=== PATIENT | female | born 1965 | race Caucasian/White ===

== ENCOUNTER 2016-03-27 07:02 | Day surgery (SDC) | payer OTHER ==
[~2016-03-27 07:02] MED LIST: CITA20TA4 PO; FISH1000 PO; HYDR25TA5 PO; M2 M100C PO; METF500T PO; METO25TA3 PO; POTA1TAB4 PO; RANI150T PO; TRAD5TAB PO; TURMPOW PO
[2016-03-27] MEDS ORDERED: LORazepam 1 MG TAB SL SCH (07:45)
[2016-03-27] MEDS ORDERED: CHLORHEXIDINE GLUCONATE 2 % 1 PACK (2 CLOTHS) TOP SCH (07:45)
[2016-03-27] MEDS ORDERED: NS 1000 ML IV SCH (07:45)
[2016-03-27] MEDS ORDERED: ceFAZolin 2 GM PREMIX 50 ML IV SCH (07:45)
[2016-03-27] MEDS ORDERED: Hold AM Insulin & AM Hypoglycemic medications in diabetic patients XX PRN (07:45)
[2016-03-27] MEDS ORDERED: MUPIROCIN 2% OINT 1 APPLIC/GM SYR NASAL SCH (07:45)
[2016-03-27] MEDS ORDERED: POVIDONE IODINE 5% (ANTISEPSIS KIT) 4 APPLICATIONS EACH NARE SCH (07:45)
[2016-03-27] MEDS ORDERED: MIDAZOLAM HCL 5 MG/5 ML VIAL ONE (08:06)
[2016-03-27] MEDS ORDERED: CEPH-460 PO (10:51)
--- NOTE | 2016-03-27 12:29 | MP ---
cc: MARY NAJERA M.D. DATE OF SURGERY: 03/27/2016 OPERATION: Loop recorder insertion. INDICATION Mrs. Canales is a 51-year-old female with episode of supraventricular tachyarrhythmia, symptomatic, negative electrophysiology study, near-syncope, to undergo loop recorder insertion. The risks, the nature and the benefit of the procedure are clearly stated to her. The risks include pneumothorax, cardiac perforation, stroke, need for open heart surgery and even . The patient understood and agreed to proceed. PROCEDURE After written informed consent was obtained, the patient was evaluated at the DOC Unit. The patient was prepped in the usual sterile fashion. Conscious sedation was initiated and maintained using intravenous Versed and intravenous Fentanyl. Once sedation verified, the left parasternal area was anesthetized with 2% Xylocaine. Using a cutter a 11-cm incision was made. Subsequently the loop was injected under the skin. After adequate sensing, threshold was obtain, the border was reapproximated using Dermabond and Steri-Strips. No incident report. The patient tolerated the procedure. Blood loss was Minimal. IMPLANTED HARDWARE: The implanted loop recorder is a [employer] model number LNQ11, serial number [id number]. SENSING: The sensitivity is 0.35. SETTING: Tachy is set at above 150. Renato below 40. CONCLUSION Successful loop recorder insertion, COMMENT AND RECOMMENDATION The patient is going to be observed. When stable will be discharged home later today. MD LEESA Torres/TLL /8:59 AM /12:14 PM
== END 2016-03-27 10:55 | disposition home or self-care (01) ==
LOC: HDIC 07:02 → HDOC 07:02
PROVIDERS: ATTEND Internal Medicine Interventional Cardiology
DX: I47.1 Supraventricular tachycardia (principal); R55 Syncope and collapse
CPT/HCPCS: 33282; C1764; J0690; J2250; J3010

== ENCOUNTER 2016-08-21 21:55 | Emergency (ER) | payer OTHER ==
[~2016-08-21] VITALS: Ht 170.2 cm; Wt 85.3 kg
[~2016-08-21 21:55] MED LIST changes: -CLIN1CAP6 PO; -LEVA500T20 PO; -LEXA10TA PO; -ONABOTULINUMTOXINA INJ 100 UNITS/VIAL ONE; -PLEXUS BIOCLEANSE PO; -PLEXUS PROBIOTIC PO; -PROM25TA10 PO; -PROPOFOL 500 MG/50 ML BTL IV ONE; -ROSU1TAB10 PO; -SODIUM CHLORIDE 0.9% INJ 10 ML ONE; -SOTA80TA PO; -SPIR25TA PO
[2016-08-21 21:57] VITALS: BP 122/75; PULSE 103; RESP 20; TEMP 99.2; O2SAT 94
[2016-08-21] MEDS ORDERED: RANI150T PO (22:15)
[2016-08-21] MEDS ORDERED: LEXA10TA PO (22:15)
[2016-08-21] MEDS ORDERED: PLEXUS BIOCLEANSE PO (22:15)
[2016-08-21] MEDS ORDERED: SPIR25TA PO (22:15)
[2016-08-21] MEDS ORDERED: ROSU1TAB10 PO (22:15)
[2016-08-21] MEDS ORDERED: SOTA80TA PO (22:15)
[2016-08-21] MEDS ORDERED: PLEXUS PROBIOTIC PO (22:15)
[2016-08-21] MEDS ORDERED: PROM25TA10 PO (22:16)
--- NOTE | 2016-08-21 22:19 | PD ---
HPI Chief Complaint: Cold / Flu Symptoms Time Seen by Provider: 22:14 Travel History International Travel<30 days: No Contact w/Intl Traveler<30days: No Traveled to known affect area: No History of Present Illness HPI The patient is a 51-year-old female that had an EGD completed today at approximately [address] Zamora. The patient has been running a fever as high as 102.7 and has had a cough that began after the EGD. She does have a hoarse voice. Botox was used during the procedure. She has never smoked and does not have any history of lung problems. The patient states she is not allergic to Cipro, she was told not to take that with her previous anxiety medications which he does not take at this time. PFSH Past Medical History Hx Anticoagulant Therapy: Yes Cancer: Yes (MELANOMA, CERVICAL) Cardiovascular Problems: Yes (AFIB) Chest Pain: No Diabetes: Yes Gastrointestinal Disorders: No Glaucoma: No Hepatitis: No Hiatal Hernia: Yes Hypertension: Yes Integumentary: No Thyroid Disease: No ?: Not Past Surgical History Gynecologic Surgery: Yes (CONE BIOPSY AND D&C HYSTEROSCOPY 96') Hysterectomy: Yes Social History Alcohol Use: No (VERY RARELY) Tobacco Use: No Allergies-Medications (Allergen,Severity, Reaction): Coded Allergies: Cipro (Verified Allergy, Severe, 08/21/16) Meperidine (Verified Allergy, Severe, 08/21/16) Demerol (Verified Allergy, Intermediate, NAUSEA AND VOMITING, 08/21/16) Reported Meds & Prescriptions Reported Meds & Active Scripts Active Reported Phenergan (Promethazine HCl) 25 Mg Tablet 25 Mg PO Q6H PRN Ranitidine (Ranitidine HCl) 150 Mg Tab 150 Mg PO BID PRN [Plexus Biocleanse] 1 Tab PO DAILY [Plexus Probiotic] 1 Tab PO DAILY Rosuvastatin (Rosuvastatin Calcium) 40 Mg Tab 40 Mg PO DAILY Spironolactone 25 Mg Tab 25 Mg PO DAILY Lexapro (Escitalopram Oxalate) 10 Mg Tab 10 Mg PO DAILY Sotalol (Sotalol HCl) 80 Mg Tab 80 Mg PO BID Tradjenta (Linagliptin) 5 Mg Tab 5 Mg PO DAILY Ranitidine (Ranitidine HCl) 150 Mg Tab 150 Mg PO HS Metformin (Metformin HCl) 500 Mg Tab 500 Mg PO BIDPC With meals Review of Systems Except as stated in HPI: all other systems reviewed are Neg Physical Exam Narrative GENERAL: The patient is alert, oriented 3 in no respiratory distress. Her vital signs show heart rate of 103 but otherwise are normal. SKIN: Focused skin assessment warm/dry. HEAD: Atraumatic. Normocephalic. EYES: Pupils equal and round. No scleral icterus. No injection or drainage. ENT: No nasal bleeding or discharge. Mucous membranes pink and moist. The throat shows the expected bruising and minimal swelling of the soft palate and uvula post EGD. She does have poor speech. NECK: Trachea midline. No JVD. CARDIOVASCULAR: Regular rate and rhythm. No murmur appreciated. RESPIRATORY: No accessory muscle use. Clear to auscultation. Breath sounds equal bilaterally. The patient does not take deep respirations because, when she does, it makes her cough. GASTROINTESTINAL: Abdomen soft, non-tender, nondistended. Hepatic and splenic margins not palpable. MUSCULOSKELETAL: No obvious deformities. No clubbing. No cyanosis. No edema. NEUROLOGICAL: Awake and alert. No obvious cranial nerve deficits. Motor grossly within normal limits. Normal speech. PSYCHIATRIC: Appropriate mood and affect; insight and judgment normal. Data Data Last Documented VS Vital Signs Date Time Temp Pulse Resp B/P Pulse Ox O2 Delivery O2 Flow Rate FiO2 08/21/16 22:40 96 16 118/74 94 Room Air 08/21/16 21:57 99.2 Orders Chest, Pa & Lat (08/21/16 22:14) Complete Blood Count With Diff (08/21/16 22:14) Comprehensive Metabolic Panel (08/21/16 22:14) Blood Culture (08/21/16 22:14) Arterial Blood Gas (Abg) (08/21/16 ) Urinalysis - C+S If Indicated (08/21/16 23:44) Ceftriaxone Inj (Rocephin Inj) (08/21/16 23:45) Clindamycin (Cleocin) (08/21/16 23:45) Labs Laboratory Tests Test 08/21/16 08/21/16 22:22 22:31 White Blood Count 16.2 TH/MM3 Red Blood Count 4.95 MIL/MM3 Hemoglobin 13.8 GM/DL Hematocrit 41.0 % Mean Corpuscular Volume 82.8 FL Mean Corpuscular Hemoglobin 27.9 PG Mean Corpuscular Hemoglobin 33.7 % Concent Red Cell Distribution Width 12.5 % Platelet Count 247 TH/MM3 Mean Platelet Volume 9.0 FL Neutrophils (%) (Auto) 90.5 % Lymphocytes (%) (Auto) 4.9 % Monocytes (%) (Auto) 4.1 % Eosinophils (%) (Auto) 0.2 % Basophils (%) (Auto) 0.3 % Neutrophils # (Auto) 14.7 TH/MM3 Lymphocytes # (Auto) 0.8 TH/MM3 Monocytes # (Auto) 0.7 TH/MM3 Eosinophils # (Auto) 0.0 TH/MM3 Basophils # (Auto) 0.0 TH/MM3 CBC Comment DIFF FINAL Differential Comment Sodium Level 138 MEQ/L Potassium Level 3.7 MEQ/L Chloride Level 100 MEQ/L Carbon Dioxide Level 26.0 MEQ/L Anion Gap 12 MEQ/L Blood Urea Nitrogen 13 MG/DL Creatinine 1.20 MG/DL Estimat Glomerular Filtration 47 ML/MIN Rate Random Glucose 289 MG/DL Calcium Level 9.0 MG/DL Total Bilirubin 0.4 MG/DL Aspartate Amino Transf 25 U/L (AST/SGOT) Alanine Aminotransferase 30 U/L (ALT/SGPT) Alkaline Phosphatase 113 U/L Total Protein 7.7 GM/DL Albumin 3.5 GM/DL Blood Gas Puncture Site RT RADIAL Blood Gas Patient Temperature 98.6 Blood Gas HCO3 25 mmol/L Blood Gas Base Excess 1.7 mmol/L Blood Gas Oxygen Saturation 93 % Arterial Blood pH 7.47 Arterial Blood Partial 36 mmHG Pressure CO2 Arterial Blood Partial 74 mmHG Pressure O2 Arterial Blood Oxygen Content 18.8 Vol % Arterial Blood 1.6 % Carboxyhemoglobin Arterial Blood Methemoglobin 1.0 % Blood Gas Hemoglobin 14.4 G/DL Oxygen Delivery Device ROOM AIR Blood Gas Inspired Oxygen 21 % [facility] Medical Decision Making Medical Screen Exam Complete: Yes Emergency Medical Condition: Yes Medical Record Reviewed: Yes Interpretation(s) The blood gases show pH 7.47, CO2 36, PO2 74 with O2 sat 93% on room air. The CBC shows a white count of 16,200 with 91% neutrophils but is otherwise unremarkable. The complete metabolic profile shows a creatinine 1.2, glucose of 289 but is otherwise normal. The chest x-ray shows under inflated exam with atelectasis in the right base and some degree of atelectasis on the left base. Some of the airspace opacity at the left base could also represent airspace consolidation and potentially an infectious process. Differential Diagnosis Aspiration pneumonia, community-acquired pneumonia, viral syndrome, hypoxemia, pneumothoraxunlikely, electrolyte disorder Narrative Course The patient's blood gases are tingling a normal but they are not as good as one would expect for someone who is never smoked. For this reason she was offered admission but declined. Plan: The patient will be given coverage with clindamycin and Levaquin because of the possibility of aspiration pneumonia. The patient states she is not allergic to Cipro. Diagnosis Primary Impression: Aspiration pneumonia Additional Instructions: As we discussed, follow-up with Dr. Joyce later this week. The clindamycin is 1 capsule 4 times daily and the Levaquin is one tablet daily, both are for 10 days. If worse, return to the emergency department anytime. Med/Other Pt SpecificInfo: Prescription(s) given Scripts Levofloxacin (Levaquin)500 Mg [id number] Mg PO DAILY 10 Days Prov:Bill Coles MD 08/21/16 Clindamycin 300 Mg Ssf182 Mg PO Q6H 10 Days Ref 0 Prov:Bill Coles MD 08/21/16 Disposition: 01 DISCHARGE HOME Condition: Stable Bill Coles MD Aug 21, 2016 22:19
[2016-08-21 22:40] VITALS: BP 118/74; PULSE 96; RESP 16; O2SAT 94
[2016-08-21 22:40] LABS: BLOOD GAS BASE EXCESS 1.7 mmol/L (-2-2); BLOOD GAS CARBOXYHEMOGLOBIN 1.6 % (0-4); BLOOD GAS HCO3 25 mmol/L (22-26); BLOOD GAS O2 HGB SATURATION 93 % (90-100); BLOOD GAS OXYGEN CONTENT 18.8 Vol % (12.0-20.0); BLOOD GAS PCO2 36 mmHG (38-42); BLOOD GAS PO2 74 mmHG (61-120); BLOOD GAS TOTAL HGB 14.4 G/DL (12.0-16.0); CRITICAL VALUE NO; DRAW SITE RT RADIAL; FIO2 21 %; NUMBER OF ARTERIAL PUNCTURES 1; OXYGEN DEVICE ROOM AIR; STAT YES; TEMP CORR TO 98.6; ULNAR PULSE PRESENT
--- NOTE | 2016-08-21 22:46 | RADHPO ---
EXAM DATE/TIME: 08/21/2016 22:27 [place] COMPARISON: No previous studies available for comparison. INDICATIONS : Fever and cough. MEDICAL HISTORY : Afib. SURGICAL HISTORY : Loop recorder insertion. ENCOUNTER: Initial ACUITY: 1 day PAIN SCORE: 0/10 LOCATION: Bilateral chest FINDINGS: Frontal and lateral views of the chest demonstrate a normal-sized cardiac silhouette. The loop record er type device is in the anterior chest. Lungs are underinflated and there is bibasilar opacity. No p neumothorax or pleural effusion is identified. The bones and soft tissues demonstrate no abnormality. . CONCLUSION: Underinflated examination with atelectasis at the right base and some degree of atelectasis in the le ft lung base. However, some of the airspace opacity at the left base could also represent airspace co nsolidation and potentially an infectious process. Fei Florentino MD on August 21, 2016 at 22:42 Board Certified Radiologist. This report was verified electronically.
[2016-08-21 22:50] LABS: AUTOMATED NEUTROPHIL # 14.7 TH/MM3 (1.8-7.7); BASOPHIL % 0.3 % (0.0-2.0); EOSINOPHIL % 0.2 % (0.0-4.0); LYMPH % 4.9 % (9.0-44.0); LYMPHOCYTE # 0.8 TH/MM3 (1.0-4.8); MEAN CELL VOLUME 82.8 FL (80.0-100.0); MEAN CORPUSCULAR HEMOGLOBIN 27.9 PG (27.0-34.0); MEAN CORPUSCULAR HGB CONC 33.7 % (32.0-36.0); MONO % 4.1 % (0.0-8.0); NEUT % 90.5 % (16.0-70.0); PLATELET COUNT 247 TH/MM3 (150-450); RED BLOOD COUNT 4.95 MIL/MM3 (4.00-5.30); RED CELL DISTRIBUTION WIDTH 12.5 % (11.6-17.2); WHITE BLOOD COUNT 16.2 TH/MM3 (4.0-11.0)
[2016-08-21 22:52] LABS: HEMO FLAGS DIFF FINAL
[2016-08-21 22:59] LABS: CHLORIDE 100 MEQ/L (98-107); POTASSIUM 3.7 MEQ/L (3.5-5.1); SODIUM (NA) 138 MEQ/L (136-145)
[2016-08-21 23:03] LABS: ANION GAP 12 MEQ/L (5-15); BLOOD UREA NITROGEN 13 MG/DL (7-18)
[2016-08-21 23:06] LABS: ALT (GPT) 30 U/L (10-53); AST (GOT) 25 U/L (15-37); GLOMERULAR FILTRATION RATE 47 ML/MIN (>89)
[2016-08-21 23:08] LABS: TOTAL BILIRUBIN ADULT 0.4 MG/DL (0.2-1.0)
[2016-08-21 23:09] LABS: ALKALINE PHOSPHATASE 113 U/L (45-117)
[2016-08-21 23:10] VITALS: BP 110/62; PULSE 92; RESP 16; O2SAT 93
[2016-08-21] MEDS ORDERED: cefTRIAXone INJ 1,000 MG in SODIUM CHLORIDE 0.9% INJ 100 ML IV ONE (23:45)
[2016-08-21] MEDS ORDERED: CLINDAMYCIN 150 MG CAP PO ONE (23:45)
[2016-08-21] MEDS ORDERED: CLIN1CAP6 PO (23:53)
[2016-08-21] MEDS ORDERED: LEVA500T20 PO (23:53)
[2016-08-22 00:11] LABS: BLOOD, URINE NEG (NEG); GLUCOSE,URINE 250 mg/dL (NEG); KETONE, URINE NEG (NEG); NITRITE,URINE NEG (NEG)
[2016-08-22 00:19] LABS: URINE COLOR YELLOW (YELLW/STRAW)
[2016-08-22 00:20] LABS: BACTERIA, URINE OCC /hpf; MUCUS URINE MOD /lpf (OCC)
[2016-08-22 00:21] LABS: SQUAMOUS EPITHELIAL CELL URINE > 8 /hpf (0-5); WBC, URINE 0-2 /hpf (0-5)
[2016-08-22 00:22] LABS: COMMENT (UR) CULT NOT INDICATED; CULTURE IF INDICATED CULT NOT INDICATED; RBC, URINE 0-3 /hpf (0-3)
[2016-08-22 00:55] VITALS: BP 103/68; PULSE 85; RESP 16; O2SAT 94
== END 2016-08-22 01:01 | disposition home or self-care (01) ==
LOC: PHED 21:55
DX: J69.0 Pneumonitis due to inhalation of food and vomit (principal); I48.91 Unspecified atrial fibrillation; E11.9 Type 2 diabetes mellitus without complications; I10 Essential (primary) hypertension; Z79.01 Long term (current) use of anticoagulants
CPT/HCPCS: 36600; 71020; 80053; 81001; 82805; 85025; 87040; 96365; 99284; J0696

== ENCOUNTER → 2016-08-21 | Day surgery (SDC) | payer OTHER ==
[~2016-08-21] MED LIST changes: +CEPH-460 PO; +CLIN1CAP6 PO; +LEVA500T20 PO; +LEXA10TA PO; +ONABOTULINUMTOXINA INJ 100 UNITS/VIAL ONE; +PLEXUS BIOCLEANSE PO; +PLEXUS PROBIOTIC PO; +PROM25TA10 PO; +PROPOFOL 500 MG/50 ML BTL IV ONE; +ROSU1TAB10 PO; +SODIUM CHLORIDE 0.9% INJ 10 ML ONE; +SOTA80TA PO; +SPIR25TA PO; -TURMPOW PO
--- NOTE | 2016-08-21 14:19 | GIPROC ---
[facility] [address] [facility], [address] COLONOSCOPY PROCEDURE REPORT EXAM DATE: 08/21/2016 PATIENT NAME: Elicia Canales MR #: [id number] BIRTHDATE: 1965 ENDOSCOPIST: Stefanie Zamora MD ORDER #: [id number] [employer] TECHNICIAN: STATUS: outpatient INDICATIONS: The patient is a 51 yr old female here for a colonoscopy due to average risk patient for colon cancer PROCEDURE PERFORMED: Colonoscopy with biopsy MEDICATIONS: None and Per Anesthesia. PREP QUALITY: fair PREP TYPE:Other: ESTIMATED BLOOD LOSS: None CONSENT: The patient understands the risks and benefits of the procedure and understands that these risks include, but are not limited to: sedation, allergic reaction, infection, perforation and/or bleeding. Alternative means of evaluation and treatment include, among others: physical exam, x-rays, and/or surgical intervention. The patient elects to proceed with this endoscopic procedure. medical equipment was checked for proper function. Hand hygiene and appropriate measures for infection prevention was taken. After the risks, benefits and alternatives of the procedure were thoroughly explained, Informed consent was verified, confirmed and timeout was successfully executed by the treatment team. A digital exam revealed external hemorrhoids The EC-[id number] ([id number]) endoscope was introduced through the anus and advanced to the cecum, which was identified by both the appendix and ileocecal valve. The instrument was then slowly withdrawn as the colon was fully examined. COLON FINDINGS: Polyp diminutive rectum-cold biopsy with complete removal. Retroflexed views revealed internal hemorrhoids and Retroflexed views revealed small internal hemorrhoids The scope was then completely withdrawn from the patient and the procedure terminated. PROCEDURE WITHDRAWAL TIME:6minutes ADVERSE EVENTS: There were no complications. IMPRESSIONS: 1. Polyp diminutive rectum-cold biopsy with complete removal 2. Retroflexed views revealed internal hemorrhoids 3. Retroflexed views revealed small internal hemorrhoids 4. Revealed external hemorrhoids RECOMMENDATIONS: 1. Await biopsy results. Biopsy results will not be ready for 7-10 days. If you don't hear from us in two weeks, call our office for results. 2. Probiotics from any C or health food store 3. Yearly rectal exams RECALL: Colonoscopy, pending biopsy results Stefanie Zamora MD eSigned: Stefanie Zamora MD 08/21/2016 2:18 PM cc: [facility] and Dolly Bell M.D. PATIENT NAME: Elicia Caanles MR#: [id number]
--- NOTE | 2016-08-21 14:24 | GIPROC ---
[facility] [address], [address] EGD PROCEDURE REPORT EXAM DATE: 08/21/2016 PATIENT NAME: Elicia Canales MR #: [id number] BIRTHDATE: 1965 ATTENDING: Stefanie Zamora MD ORDER #: [id number] PSYCHOLOGY ASSOCIATE: STATUS: outpatient INDICATIONS: The patient is a 51 yr old female here for an EGD due to reflux, gastroparesis PROCEDURE PERFORMED: EGD w/ biopsy EGD w/ directed submucosal injection(s), any substance MEDICATIONS: None and Per Anesthesia. TOPICAL ANESTHETIC: none CONSENT: The patient understands the risks and benefits of the procedure and understands that these risks include, but are not limited to: sedation, allergic reaction, infection, perforation and/or bleeding. Alternative means of evaluation and treatment include, among others: physical exam, x-rays, and/or surgical intervention. The patient elects to proceed with this endoscopic procedure. medical equipment was checked for proper function. Hand hygiene and appropriate measures for infection prevention was taken. After the risks, benefits and alternatives of the procedure were thoroughly explained, Informed consent was verified, confirmed and timeout was successfully executed by the treatment team. The patient was anesthetized with topical anesthesia and the EC-3490Li ([id number]) endoscope was introduced through the mouth and advanced to the second portion of the duodenum. Retroflexed views revealed a hiatal hernia The gastroscope was then slowly withdrawn and removed. Duodenitis second portion with supperficial ulcerations-biopsy gastritis antrum-biopsy esophagitis distal esophagus-biopsy 100 units of BOTOX injected in pyloric channela -25 units in each quadrant erythema vocal cords. ADVERSE EVENTS: There were no complications. IMPRESSIONS: 1. Duodenitis second portion with supperficial ulcerations-biopsy gastritis antrum-biopsy esophagitis distal esophagus-biopsy 100 units of BOTOX injected in pyloric channela -25 units in each quadrant 2. Retroflexed views revealed a hiatal hernia RECOMMENDATIONS: 1. Await biopsy results. Biopsy results will not be ready for 7-10 days. If you don't hear from us in two weeks, call our office for biopsy results. 2. Anti-reflux regimen 3. Continue PPI 4. Avoid NSAIDS 5. Ent eval-erythema vocal cords PATIENT CONDITION: stable DISPOSITION: Home REPEAT EXAM: EGD pending biopsy results Stefanie Zamora MD eSigned: Stefanie Zamora MD 08/21/2016 2:24 PM cc: Gianna López [facility] Katherine Bell M.D. PATIENT NAME: Parker Elicia Marques MR#: [id number]
== END | disposition home or self-care (01) ==
LOC: ESDC 12:04
PROVIDERS: ATTEND Internal Medicine Gastroenterology
DX: Z12.11 Encounter for screening for malignant neoplasm of colon (principal); K62.1 Rectal polyp; K64.8 Other hemorrhoids; K64.4 Residual hemorrhoidal skin tags; K21.9 Gastro-esophageal reflux disease without esophagitis; K31.84 Gastroparesis; K44.9 Diaphragmatic hernia without obstruction or gangrene; K20.9 Esophagitis, unspecified; K29.70 Gastritis, unspecified, without bleeding; K29.80 Duodenitis without bleeding
CPT/HCPCS: 00740; 00810; 43236; 43239; 45380; 88305; 88312; J0585; J3010

== ENCOUNTER → 2017-08-24 | Outpatient (CLI) | payer OTHER ==
[~2017-08-24] MED LIST changes: -CEPH-460 PO; -CITA20TA4 PO; +CLIN300C5 PO; +DOXY1TAB6 PO; -FISH1000 PO; -HYDR25TA5 PO; +INSPIREASE DRUG1 EA; +LEVA500T33 PO; +LEXA10TA PO; -M2 M100C PO; -METO25TA3 PO; +PLEXUS BIOCLEANSE PO; +PLEXUS PROBIOTIC PO; -POTA1TAB4 PO; +PRED20 PO; +PROM25TA10 PO; +ROSU1TAB10 PO; +SOTA80TA PO; +SPIR25TA PO
== END ==
LOC: HRSP 08:10
PROVIDERS: ATTEND Internal Medicine Pulmonary Disease
DX: R05 Cough (principal)
CPT/HCPCS: 36600; 82805; 94060; 94618; 94726; 94729

== ENCOUNTER 2017-08-26 19:48 | Emergency (ER) | payer OTHER ==
[~2017-08-26] VITALS: Ht 170.2 cm; Wt 87.3 kg
[~2017-08-26 19:48] MED LIST changes: -DOXY1TAB6 PO; -INSPIREASE DRUG1 EA; -PRED20 PO
[2017-08-26 19:50] VITALS: BP 162/85; PULSE 85; RESP 18; TEMP 98.2; O2SAT 96
[2017-08-26] MEDS ORDERED: PRED20 PO (20:34)
[2017-08-26] MEDS ORDERED: DOXY1TAB6 PO (20:34)
[2017-08-26] MEDS ORDERED: INSPIREASE DRUG1 EA (20:34)
--- NOTE | 2017-08-26 20:34 | PD ---
HPI Chief Complaint: Cold / Flu Symptoms Time Seen by Provider: 20:05 Travel History International Travel<30 days: No Contact w/Intl Traveler<30days: No Traveled to known affect area: No History of Present Illness HPI This is a 52-year-old female who presents to the emergency department with a history of aspiration pneumonia 1 year ago in the setting of endoscopy with subsequent episodes of bronchitis and pneumonia who presents to the emergency department with 1 month of nasal congestion and productive cough with green sputum, constant, moderate severity, worse in the evenings. She has been on Augmentin for several days but she is not improving. She follows with Dr. Lerma and just had pulmonary function test performed but does not know the results. She follows back up with him on . 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 She has a history of diabetes so she avoids prednisone if possible and she also has a history of atrial fibrillation and is on sotalol so she minimizes her use of albuterol. PFSH Past Medical History Hx Anticoagulant Therapy: Yes (asa) Arthritis: Yes (LOWER BACK) Anxiety: Yes Heart Rhythm Problems: Yes (HX SVT PVC'S AND PAC'S) Cancer: Yes (MELANOMA, CERVICAL) Cardiovascular Problems: Yes (afib) High Cholesterol: Yes Chest Pain: No Diabetes: Yes Diminished Hearing: No Gastrointestinal Disorders: No Glaucoma: No Hepatitis: No Hiatal Hernia: Yes Hypertension: Yes (PT DENIES) Integumentary: No Immunizations Current: Yes Sleep Apnea: Yes Thyroid Disease: No ?: Not : 1 Para: 1 Past Surgical History Abdominal Surgery: Yes (EGD, EGD WITH COLONOSCOPY) Gynecologic Surgery: Yes (CONE BIOPSY AND D&C HYSTEROSCOPY 96') Hysterectomy: Yes Thoracic Surgery: Yes (RIGHT BREAST PRE-CANCEROUS MASS REMOVED) Other Surgery: Yes (97' ) Social History Alcohol Use: No (VERY RARELY) Tobacco Use: No Substance Use: No Allergies-Medications (Allergen,Severity, Reaction): Coded Allergies: ciprofloxacin (Unverified Allergy, Severe, 08/26/17) meperidine (Unverified Allergy, Severe, 08/26/17) Reported Meds & Prescriptions Reported Meds & Active Scripts Active Levaquin (Levofloxacin) 500 Mg Tablet 500 Mg PO DAILY 10 Days Clindamycin (Clindamycin HCl) 300 Mg Cap 300 Mg PO Q6H 10 Days Reported Phenergan (Promethazine HCl) 25 Mg Tablet 25 Mg PO Q6H PRN Ranitidine (Ranitidine HCl) 150 Mg Tab 150 Mg PO BID PRN [Plexus Biocleanse] 1 Tab PO DAILY [Plexus Probiotic] 1 Tab PO DAILY Rosuvastatin (Rosuvastatin Calcium) 40 Mg Tab 40 Mg PO DAILY Spironolactone 25 Mg Tab 25 Mg PO DAILY Lexapro (Escitalopram Oxalate) 10 Mg Tab 10 Mg PO DAILY Sotalol (Sotalol HCl) 80 Mg Tab 80 Mg PO BID Tradjenta (Linagliptin) 5 Mg Tab 5 Mg PO DAILY Ranitidine (Ranitidine HCl) 150 Mg Tab 150 Mg PO HS Metformin (Metformin HCl) 500 Mg Tab 500 Mg PO BIDPC With meals Review of Systems Except as stated in HPI: all other systems reviewed are Neg Physical Exam Narrative GENERAL:Well appearing, no acute distress SKIN: Focused skin assessment warm and dry. HEAD: Atraumatic. Normocephalic. EYES: Pupils equal and round. No injection or drainage. ENT: Moist mucous membranes NECK: Trachea midline. CARDIOVASCULAR: Regular rate and rhythm. No murmur appreciated. RESPIRATORY: Diffuse expiratory wheezing with no focal crackles or rales, no increased work of breathing GASTROINTESTINAL: Abdomen soft, non-tender, nondistended. MUSCULOSKELETAL: No obvious deformities. NEUROLOGICAL: Awake and alert. No obvious cranial nerve deficits. Moving all extremities. PSYCHIATRIC: Appropriate mood and affect; insight and judgment normal. Data Data Last Documented VS Vital Signs Date Time Temp Pulse Resp B/P (MAP) Pulse Ox O2 Delivery O2 Flow Rate FiO2 08/26/17 19:50 98.2 85 18 162/85 (110) 96 MDM Medical Decision Making Medical Screen Exam Complete: Yes Emergency Medical Condition: Yes Interpretation(s) Afebrile, no tachycardia, hypertensive Differential Diagnosis Bronchitis, pneumonia, sinusitis Narrative Course This is a 52-year-old female who presents to the emergency department with productive cough with green sputum and nasal congestion. Her symptoms have been going on for 1 month. She has a benign physical exam with some expiratory wheezing. I think she would benefit from a low-dose of prednisone and albuterol. She will be switched to doxycycline to get better respiratory atypical coverage. I think she is safe to follow-up with Dr. Lerma as an outpatient. Diagnosis Primary Impression: Bronchitis Patient Instructions: General Instructions Additional Instructions: If you develop severe shortness of breath, chest pain, or difficulty breathing return to the emergency department. Use albuterol every 4 hours for the next 2 days. Then use as needed for wheezing. Complete your course of steroids. Complete your course of antibiotics. Follow up with your primary care physician in 2-3 days if your symptoms have not improved. Med/Other Pt SpecificInfo: Prescription(s) given Scripts Spacer/Device For Mdi (Inspirease Drug Delivery) 1 Ea Mis EA .XX DIRECTED, #1 0 Refills Prov: Jacklyn Mancini MD 08/26/17 Prednisone (Prednisone) 20 Mg Tab 40 MG PO DIRECTED for 5 Days, TAB 0 Refills Prov: Jacklyn Mancini MD 08/26/[address] (Doxycycline Hyclate DR) 100 Mg Tab 100 MG PO BID for Infection for 7 Days, #14 TAB 0 Refills Prov: Jacklyn Mancini MD 08/26/17 Disposition: 01 DISCHARGE HOME Condition: Stable Jacklyn Mancini MD Aug 26, 2017 20:34
== END 2017-08-26 20:46 | disposition home or self-care (01) ==
LOC: PHED 19:48
DX: J40 Bronchitis, not specified as acute or chronic (principal); E78.00 Pure hypercholesterolemia, unspecified; E11.9 Type 2 diabetes mellitus without complications; I48.91 Unspecified atrial fibrillation; I47.1 Supraventricular tachycardia; Z79.84 Long term (current) use of oral hypoglycemic drugs
CPT/HCPCS: 99283

== ENCOUNTER 2018-03-08 16:20 | Observation (INO) ==
--- NOTE | 2018-03-08 17:14 | XR ---
EXAM DATE: 03/08/2018 5:11 PM EST AGE/SEX: 52 years / Female INDICATIONS: Chest pain. CLINICAL DATA: This is the patient's initial encounter. Patient reports that signs and symptoms have been present for 1 day and indicates a pain score of 8/10. MEDICAL/SURGICAL HISTORY: . AFIB. . Loop recorder COMPARISON: No prior exams available for comparison. FINDINGS: A single AP view of the chest demonstrates the lungs to be symmetrically aerated without evidence of mass, infiltrate or effusion. The cardiomediastinal contours are unremarkable. Osseous structures a re intact. CONCLUSION: No acute intrathoracic disease. Electronically signed by: Rachid Bains MD Board Certified Radiologist 03/08/2018 5:12 PM EST
--- NOTE | 2018-03-08 17:20 | ED ---
HPI General Chief Complaint: Chest Pain Stated Complaint: Chest pain Time Seen by Provider: 03/08/18 16:44 Source: patient Mode of arrival: ambulatory Limitations: no limitations History of Present Illness HPI narrative: 52-year-old female with PMH of DM, KAYLIN, SVT, A. fib, status post implanted loop recorder presents the ED for evaluation of a few days history of "not feeling well." She states that today she felt "like my heart dropped and I had palpitations." She endorses accompanying substernal chest pain, maximally 6/10, currently asymptomatic. She also endorses associated dizziness. She denies associated diaphoresis, nausea, vomiting, shortness of breath. She denies fever, chills abdominal pain, dysuria, hematuria, back pain. She states that she is compliant 3 out of 7 days with her CPAP at night. She endorses compliance with 81 mg aspirin daily. 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 She states that she is followed by Dr. Carey. No treatment attempted before arrival. Related Data Home Medications Medication Instructions Recorded Confirmed citalopram 20 mg PO DAILY 03/08/18 03/08/18 dapagliflozin-saxagliptin [Qtern] 1 tab PO QAM 03/08/18 03/08/18 furosemide 40 mg PO DAILY 03/08/18 03/08/18 pioglitazone 15 mg PO DAILY 03/08/18 03/08/18 potassium chloride 20 meq PO DAILY 03/08/18 03/08/18 pravastatin 20 mg PO DAILY 03/08/18 03/08/18 sotalol 80 mg PO Q12H 03/08/18 03/08/18 Allergies Allergy/AdvReac Type Severity Reaction Status Date / Time ciprofloxacin Allergy Severe Unverified 08/26/17 19:50 meperidine Allergy Severe Unverified 08/26/17 19:50 Review of Systems ROS: all other systems reviewed are negative [facility] Medical History Medical History Atrial fibrillation (Acute) Breast mass in female (Acute) Cervical cancer (Acute) delivery delivered (Acute) Diabetes (Acute) H/O: hysterectomy (Acute) Melanoma (Acute) Obstructive sleep apnea (Acute) Surgical History Surgical History History of appendectomy (Acute) History of loop recorder (Acute) Social History Social History Substance History: No History of Abuse Second Hand Smoke Exposure: No Smoking Status: Never smoker How Often Do You Have a Drink Containing Alcohol: Never Recent Travel in [facility] within the Last 8 Weeks: No Recent Out of Country Travel within the Last 8 Weeks: No Exam Narrative Exam Narrative: GENERAL: Well-nourished, well-developed, nontoxic-appearing white female in no acute distress. SKIN: Focused skin assessment warm/dry. HEAD: Atraumatic. Normocephalic. EYES: Pupils equal and round. No scleral icterus. No injection or drainage. ENT: No nasal bleeding or discharge. Mucous membranes pink and moist. NECK: Trachea midline. No JVD. CARDIOVASCULAR: Regular rate and rhythm. No murmur appreciated. RESPIRATORY: No accessory muscle use. Clear to auscultation. Breath sounds equal bilaterally. GASTROINTESTINAL: Abdomen soft, non-tender, nondistended. Hepatic and splenic margins not palpable. MUSCULOSKELETAL: No obvious deformities. No clubbing. No cyanosis. No edema. NEUROLOGICAL: Awake and alert. No obvious cranial nerve deficits. Motor grossly within normal limits. Normal speech. PSYCHIATRIC: Appropriate mood and affect; insight and judgment normal. Course Initial Documented Vital Signs Temperature 97.4 F L 03/08/18 16:38 Pulse Rate 71 03/08/18 16:38 Respiratory Rate 16 03/08/18 16:38 Blood Pressure 144/73 H 03/08/18 16:38 Pulse Oximetry 98 03/08/18 16:38 Last Documented Vital Signs Temperature 97.4 F L 03/08/18 16:38 Pulse Rate 75 03/08/18 21:15 Respiratory Rate 18 03/08/18 21:15 Blood Pressure 131/63 03/08/18 21:15 Pulse Oximetry 98 03/08/18 21:15 Medical Decision Making [facility] Narrative Medical decision making narrative: 52-year-old female with PMH of DM, KAYLIN, SVT, A. fib, status post implanted loop recorder presents the ED for evaluation of palpitation and substernal chest pain. Currently asymptomatic. She states that she is compliant 3 out of 7 days with her CPAP at night. She endorses compliance with 81 mg aspirin daily. 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 She states that she is followed by Dr. Carey locally. She has not had a stress test in "about 5 years." She endorses history of heart problems and several first-degree relatives. Vitals reviewed. Physical exam is reassuring. EKG without acute findings. CXR with no acute cardiopulmonary disease. Troponin negative x1. CBC and CMP without concerning abnormalities. The patient's loop recorder was interrogated, no recent events noted. I discussed the findings with the patient. I offered her observation admission for chest pain center. She is agreeable to this plan. Please see chest pain center notes for disposition. Medical Screen Exam Complete: Yes Emergency Medical Condition: Yes Differential Diagnosis Differential Diagnosis: Dysrhythmia versus metabolic derangement versus UTI versus other Lab Data Result diagrams: 03/08/18 18:00 03/08/18 18:00 Lab Results 03/08/18 03/08/18 03/08/18 Range/Units 18:00 18:00 19:00 WBC 9.4 (4.0-11.0) th/mm3 RBC 5.19 (4.00-5.30) mil/mm3 Hgb 14.5 (11.6-15.3) gm/dL Hct 44.1 (35.0-46.0) % MCV 85.0 (80.0-100.0) fL MCH 28.0 (27.0-34.0) pg MCHC 32.9 (32.0-36.0) % RDW 14.4 (11.6-17.2) % Plt Count 303 (150-450) th/mm3 MPV 9.4 (7.0-11.0) fL Prelim Diff (Auto) Jack Winder Neut % (Auto) 66.1 (16.0-70.0) % Lymph % (Auto) 25.4 (9.0-44.0) % Winn % (Auto) 6.0 (0.0-8.0) % Eos % (Auto) 1.9 (0.0-4.0) % Baso % (Auto) 0.6 (0.0-2.0) % Neut # (Auto) 6.2 (1.8-7.7) th/mm3 Lymph # (Auto) 2.4 (1.0-4.8) th/mm3 Winn # (Auto) 0.6 (0.0-0.9) th/mm3 Eos # (Auto) 0.2 (0.0-0.4) th/mm3 Baso # (Auto) 0.1 (0.0-0.2) th/mm3 WBC Differential . Differential Comment Auto diff final Sodium 137 (136-145) meq/L Potassium 4.0 (3.5-5.1) meq/L Chloride 102 (98-107) meq/L Carbon Dioxide 29.2 (21.0-32.0) meq/L Anion Gap 6 (5-15) meq/L BUN 27 H (7-18) mg/dL Creatinine 0.97 (0.50-1.00) mg/dL Estimated GFR 60 L (>89) mL/min Random Glucose 174 H (74-106) mg/dL Calcium 8.9 (8.5-10.1) mg/dL Total Bilirubin 0.4 (0.2-1.0) mg/dL AST 33 (15-37) U/L ALT 26 (10-53) U/L Alkaline Phosphatase 136 H (45-117) U/L Total Creatine Kinase (26-192) U/L Troponin I Less than 0.02 L (0.02-0.05) ng/mL Total Protein 8.0 (6.4-8.2) g/dL Albumin 3.4 (3.4-5.0) g/dL Urine Color Yellow (Yellw/Straw) Urine Clarity Clear (Clear) Urine pH 5.0 (5.0-8.5) Ur Specific Swoope 1.031 (1.002-1.035) Urine Protein Negative (Neg-Trace) mg/dL Urine Glucose (UA) 500 or greater (Negative) mg/dL Urine Ketones Negative (Negative) mg/dL Urine Occult Blood Negative (Negative) Urine Nitrate Negative (Negative) Urine Bilirubin Negative (Negative) Urine Urobilinogen Less than 2 (Less than 2) mg/dL Ur Leukocyte Esterase Negative (Negative) Ur Squamous Epith Cells <1 (0-5) /hpf Micro UA Comment Culture not ind Ur Microscopic Review Not Reportable Urine Culture Comments Culture not ind 03/08/18 Range/Units 20:35 WBC (4.0-11.0) th/mm3 RBC (4.00-5.30) mil/mm3 Hgb (11.6-15.3) gm/dL Hct (35.0-46.0) % MCV (80.0-100.0) fL MCH (27.0-34.0) pg MCHC (32.0-36.0) % RDW (11.6-17.2) % Plt Count (150-450) th/mm3 MPV (7.0-11.0) fL Prelim Diff (Auto) Neut % (Auto) (16.0-70.0) % Lymph % (Auto) (9.0-44.0) % Winn % (Auto) (0.0-8.0) % Eos % (Auto) (0.0-4.0) % Baso % (Auto) (0.0-2.0) % Neut # (Auto) (1.8-7.7) th/mm3 Lymph # (Auto) (1.0-4.8) th/mm3 Winn # (Auto) (0.0-0.9) th/mm3 Eos # (Auto) (0.0-0.4) th/mm3 Baso # (Auto) (0.0-0.2) th/mm3 WBC Differential Differential Comment Sodium (136-145) meq/L Potassium (3.5-5.1) meq/L Chloride (98-107) meq/L Carbon Dioxide (21.0-32.0) meq/L Anion Gap (5-15) meq/L BUN (7-18) mg/dL Creatinine (0.50-1.00) mg/dL Estimated GFR (>89) mL/min Random Glucose (74-106) mg/dL Calcium (8.5-10.1) mg/dL Total Bilirubin (0.2-1.0) mg/dL AST (15-37) U/L ALT (10-53) U/L Alkaline Phosphatase (45-117) U/L Total Creatine Kinase 73 (26-192) U/L Troponin I Less than 0.02 L (0.02-0.05) ng/mL Total Protein (6.4-8.2) g/dL Albumin (3.4-5.0) g/dL Urine Color (Yellw/Straw) Urine Clarity (Clear) Urine pH (5.0-8.5) Ur Specific Swoope (1.002-1.035) Urine Protein (Neg-Trace) mg/dL Urine Glucose (UA) (Negative) mg/dL Urine Ketones (Negative) mg/dL Urine Occult Blood (Negative) Urine Nitrate (Negative) Urine Bilirubin (Negative) Urine Urobilinogen (Less than 2) mg/dL Ur Leukocyte Esterase (Negative) Ur Squamous Epith Cells (0-5) /hpf Micro UA Comment Ur Microscopic Review Urine Culture Comments Imaging Data Radiologist's impression: Chest X-Ray 03/08/18 16:48 CONCLUSION: No acute intrathoracic disease. Head CT 03/08/18 17:17 CONCLUSION: 1. No acute intracranial abnormalities. . Discharge Plan Discharge Disposition Patient Disposition: ED Admit(ED Internal Use Only) Discharge Order Discharge Orders: ED Use Only Admit Order (Routine); Ordered 03/08/18 Ordered By: Renetta Melgar Discharge Details Diagnosis: Atypical chest pain Physicians Team ED Provider: Ruperto Foster ED Midlevel Provider: Renetta Melgar Primary Care Provider: Dolly Bell Attending Provider: Aldo Thapa Status ED Status: Admitted Observation Patient
[2018-03-08 18:22] LABS: Baso # (Auto) 0.1 th/mm3 (0.0-0.2); Baso % (Auto) 0.6 % (0.0-2.0); Eos # (Auto) 0.2 th/mm3 (0.0-0.4); Eos % (Auto) 1.9 % (0.0-4.0); Hematocrit 44.1 % (35.0-46.0); Hemoglobin 14.5 gm/dL (11.6-15.3); Lymph # (Auto) 2.4 th/mm3 (1.0-4.8); Lymph % (Auto) 25.4 % (9.0-44.0); Mean Corpuscular HGB Conc 32.9 % (32.0-36.0); Mean Platelet Volume 9.4 fL (7.0-11.0); Mono # (Auto) 0.6 th/mm3 (0.0-0.9); Neut # (Auto) 6.2 th/mm3 (1.8-7.7); Neut % (Auto) 66.1 % (16.0-70.0); Platelet Count 303 th/mm3 (150-450); Red Blood Count 5.19 mil/mm3 (4.00-5.30); Red Cell Distribution Width 14.4 % (11.6-17.2); White Blood Count 9.4 th/mm3 (4.0-11.0)
[2018-03-08 18:50] LABS: Alanine Aminotransferase 26 U/L (10-53)
[2018-03-08 18:53] LABS: Alkaline Phosphatase 136 U/L (45-117)
--- NOTE | 2018-03-08 18:55 | CT ---
EXAM DATE: 03/08/2018 6:46 PM EST AGE/SEX: 52 years / Female INDICATIONS: Chest pain with palpitations CLINICAL DATA: This is the patient's initial encounter. Patient reports that signs and symptoms have been present for 1 day and indicates a pain score of 6/10. MEDICAL/SURGICAL HISTORY: Carcinoma, cervical. Atrial Fibrillation section. Appendectomy . Hysterectomy. RADIATION DOSE: 37.99 CTDI (mGy) COMPARISON: . TECHNIQUE: CT of the head without contrast. Using automated exposure control and adjustment of the mA and/or kV according to patient size, radiation dose was kept as low as reasonably achievable to ob tain optimal diagnostic quality images. DICOM format image data is available electronically for revi ew and comparison. FINDINGS: Cerebrum: The ventricles are normal for age. No evidence of midline shift, mass lesion, hemorrhage or acute infarction. No extraaxial fluid collections are seen. Posterior Fossa: The cerebellum and brainstem are intact. The 4th ventricle is midline. The cerebe llopontine angle is unremarkable. Extracranial: The visualized portion of the orbits is intact. Skull: The calvaria is intact. No evidence of skull fracture. CONCLUSION: 1. No acute intracranial abnormalities. . Electronically signed by: Nate Gardner MD Board Certified Radiologist 03/08/2018 6:54 PM EST
[2018-03-08 19:13] LABS: Albumin 3.4 g/dL (3.4-5.0); Anion Gap 6 meq/L (5-15); Aspartate Aminotransferase 33 U/L (15-37); Blood Urea Nitrogen 27 mg/dL (7-18); Calcium 8.9 mg/dL (8.5-10.1); Carbon Dioxide 29.2 meq/L (21.0-32.0); Chloride 102 meq/L (98-107); Glomerular Filtration Rate 60 mL/min (>89); Glucose,Random 174 mg/dL (74-106); Sodium 137 meq/L (136-145)
[2018-03-08 19:42] LABS: Bilirubin,Urine Negative (Negative); Clarity,Urine Clear (Clear); Color,Urine Yellow (Yellw/Straw); Glucose,Urine (UA) 500 or Greater mg/dL (Negative); Leukocyte Esterase,Urine Negative (Negative); Nitrite,Urine Negative (Negative); Specific Gravity,Urine 1.031 (1.002-1.035); Squamous Epithelial Cell,Urine <1 /hpf (0-5)
[2018-03-08 21:28] LABS: Creatine Kinase 73 U/L (26-192)
[2018-03-09 00:12] LABS: Creatine Kinase 59 U/L (26-192)
[2018-03-09 04:47] VITALS: RESP 16
[2018-03-09] MEDS ORDERED: Dextrose 50% in Water 50 ML Vial IV.PUSH PRN (08:24)
[2018-03-09] MEDS ORDERED: Citalopram 20 MG Tablet PO SCH (09:00)
[2018-03-09] MEDS ORDERED: Potassium Chloride 10 MEQ ER Capsule PO SCH (09:00)
[2018-03-09] MEDS ORDERED: Regadenoson Inj 0.4 MG/5 ML Syringe IV.PUSH ONE (09:00)
[2018-03-09] MEDS ORDERED: Ibuprofen 600 MG Tablet PO ONE (09:00)
--- NOTE | 2018-03-09 09:42 | P.HPCA ---
History of Present Illness Primary Care Physician: Dolly Bell MD Chief Complaint: Chest pain History of Present Illness: This is a 52-year-old female history of paroxysmal SVT, status post loop recorder implantation, diabetes, hyperlipidemia that presents to ED to be evaluated for chest discomfort and palpitation. She states that yesterday she just was not feeling well. While at work she then began to feel lightheaded and felt as if her heart was falling out. She has states that she began to feel her PVCs and felt them throughout the entire day. She also developed a substernal chest tightness that was intermittent throughout the day usually lasting less than a minute but was recurring about every 30 minutes. She was not short of breath, nauseous, diaphoretic with it. She wears an apple watch and states her heart rate was not above 80 but she was feeling PVCs. 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 Carey and had an EP study in 2015 that was not able to induce arrhythmia. She had loop recorder placed March 2016. Currently has no discomfort. States her last stress test was 2013 and that it was okay. Cannot recall ever having a heart catheterization. Past medical history: History of paroxysmal SVT with an EP study 2015 that did not induce arrhythmia and subsequently had loop recorder implanted March 2016. Also history of diabetes and hyperlipidemia. Denies hypertension and known CAD. Social history: Lifetime non-smoker. Denies alcohol or illicit drug use. Family history: No known family history of CAD. She states that her father had a pacemaker later in life. - Diagnosis (1) Chest pain (2) History of paroxysmal supraventricular tachycardia (3) Diabetes (4) Hyperlipidemia Review of Systems General: Patient denies fevers, chills, and recent travel. HEENT: Patient denies headache, sore throat, difficulty swallowing. Cardiovascular: Has the chest discomfort as mentioned above. Denies sensation of heart beating rapidly but states she was feeling frequent PVCs. No syncope. Denies diaphoresis. Respiratory: Denies shortness of breath or inspirational chest discomfort. Denies coughing wheezing or hemoptysis. GI: Patient denies nausea, vomiting, diarrhea, abdominal pain, bloody stools. Musculoskeletal: Patient denies joint pain or edema. Denies calf pain or edema. Neurovascular: Patient denies numbness, tingling, weakness in extremities. Denies headache. Endocrine: Denies polyuria and polydipsia. Hematologic: Denies easy bruising. Skin: Denies rash or itching. PMFSH - History History Provided By: Patient - Medical History Medical History: Medical History (Last Updated 03/08/18 @ 17:53 by Nasreen Mendoza RN) Atrial fibrillation Breast mass in female Cervical cancer delivery delivered Diabetes H/O: hysterectomy Melanoma Obstructive sleep apnea - Surgical History Surgical History: Surgical History (Last Updated 03/08/18 @ 17:53 by Nasreen Mendoza RN) History of appendectomy History of loop recorder - Tobacco History Second Hand Smoke Exposure: No Smoking Status: Never smoker - Alcohol History How Often Do You Have a Drink Containing Alcohol: Never - Substance Use History Substance History: No History of Abuse - Travel History Recent Travel in the [facility] Within the Last 8 Weeks: No Recent Travel Out of the Country Within the Last 8 Weeks: No - Immunization History Tetanus Immunization: Unsure Medications and Allergies Active Medications: Active Medications Citalopram Hydrobromide (Celexa) 20 mg PO DAILY [facility] Last Admin: 03/09/18 09:10 Dose: 20 mg Dextrose (D50w Vial) 50 ml IV.PUSH UNSCH PRN PRN Reason: PER HYPOGLYCEMIA PROTOCOL Glucagon (Glucagon Inj) 1 mg OTHER PRN PRN PRN Reason: for Hypoglycemia Protocol Insulin Human Regular (Novolin R Correctional Sugar Inj) 0 units SQ ACHS [facility]; Protocol Potassium Chloride (Kcl) 20 meq PO DAILY [facility] Pravastatin Sodium (Pravachol) 20 mg PO DAILY [facility] Last Admin: 03/09/18 09:09 Dose: 20 mg Sodium Chloride (Ns Flush) 2 ml IV.FLUSH BID [facility] Last Admin: 03/08/18 21:19 Dose: Not Given Sodium Chloride (Ns Flush) 2 ml IV.FLUSH PRN PRN PRN Reason: FLUSH AFTER USING IV ACCESS Sotalol HCl (Betapace) 80 mg PO Q12H [facility] Last Admin: 03/09/18 09:08 Dose: 80 mg Allergies Allergy/AdvReac Type Severity Reaction Status Date / Time ciprofloxacin Allergy Severe Unverified 08/26/17 19:50 meperidine Allergy Severe Unverified 08/26/17 19:50 Home Medications Medication Instructions Recorded Confirmed Type citalopram 20 mg PO DAILY 03/08/18 03/08/18 History dapagliflozin-saxagliptin [Qtern] 1 tab PO QAM 03/08/18 03/08/18 History furosemide 40 mg PO DAILY 03/08/18 03/08/18 History pioglitazone 15 mg PO DAILY 03/08/18 03/08/18 History potassium chloride 20 meq PO DAILY 03/08/18 03/08/18 History pravastatin 20 mg PO DAILY 03/08/18 03/08/18 History sotalol 80 mg PO Q12H 03/08/18 03/08/18 History Exam Vital signs: Vital Signs 03/08/18 16:38 03/08/18 18:53 03/08/18 21:15 Temperature 97.4 F L Pulse Rate 71 81 75 Respiratory Rate 16 20 18 Blood Pressure 144/73 H 141/68 H 131/63 Pulse Oximetry 98 96 98 03/09/18 00:00 03/09/18 04:00 03/09/18 07:45 Temperature 98.1 F 98.0 F 98.0 F Pulse Rate 75 72 81 Respiratory Rate 18 16 16 Blood Pressure 133/70 123/68 116/73 Pulse Oximetry 92 L 99 98 Intake & Output 03/08/18 03/09/18 03/09/18 18:59 06:59 18:59 Weight 87.09 kg 87.09 kg Other: Weight On Admission 87.09 kg Narrative: GENERAL: This is a well-nourished, well-developed patient, in no apparent distress. Patient speaks in clear complete sentences. Patient is pleasant. HEENT: Head is atraumatic and normocephalic. Neck is supple without lymphadenopathy and trachea is midline. No JVD or carotid bruits. CARDIOVASCULAR: Regular rate and rhythm without murmurs, gallops, or rubs. RESPIRATORY: Clear to auscultation. Breath sounds equal bilaterally. No wheezes , rales, or rhonchi. Chest wall is nontender. No use of accessory muscles. GASTROINTESTINAL: Abdomen is nontender, nondistended. Abdomen soft. No obvious pulsatile mass or bruit. No CVA tenderness. Strong femoral pulses bilaterally. Normal bowel sounds in all quadrants. MUSCULOSKELETAL: Patient is moving upper and lower extremities freely. No calf tenderness or edema, no Homans sign. Strong pulses in upper and lower extremities. NEUROLOGICAL: Patient is alert and oriented. Cranial nerves 2-12 are grossly intact. No focal deficits and speech is clear. SKIN: No rash and turgor is normal. Results 03/08/18 18:00 03/08/18 18:00 Cardiac Enzymes 03/08/18 03/08/18 03/08/18 Range/Units 18:00 20:35 23:20 AST 33 (15-37) U/L Troponin I Less than 0.02 L Less than 0.02 L Less than 0.02 L (0.02-0.05) ng/mL CBC 03/08/18 Range/Units 18:00 WBC 9.4 (4.0-11.0) th/mm3 RBC 5.19 (4.00-5.30) mil/mm3 Hgb 14.5 (11.6-15.3) gm/dL Hct 44.1 (35.0-46.0) % Plt Count 303 (150-450) th/mm3 Neut # (Auto) 6.2 (1.8-7.7) th/mm3 Lymph # (Auto) 2.4 (1.0-4.8) th/mm3 Moody # (Auto) 0.6 (0.0-0.9) th/mm3 Eos # (Auto) 0.2 (0.0-0.4) th/mm3 Baso # (Auto) 0.1 (0.0-0.2) th/mm3 Comprehensive Metabolic Panel 03/08/18 Range/Units 18:00 Sodium 137 (136-145) meq/L Potassium 4.0 (3.5-5.1) meq/L Chloride 102 (98-107) meq/L Carbon Dioxide 29.2 (21.0-32.0) meq/L BUN 27 H (7-18) mg/dL Creatinine 0.97 (0.50-1.00) mg/dL Calcium 8.9 (8.5-10.1) mg/dL AST 33 (15-37) U/L ALT 26 (10-53) U/L Alkaline Phosphatase 136 H (45-117) U/L Total Protein 8.0 (6.4-8.2) g/dL Albumin 3.4 (3.4-5.0) g/dL Intake and Output 03/08/18 03/09/18 03/09/18 22:59 06:59 14:59 Other: Weight 87.09 kg Weight On Admission 87.09 kg - Imaging and Cardiology Imaging: Impressions Chest X-Ray 03/08/18 16:48 CONCLUSION: No acute intrathoracic disease. Head CT 03/08/18 17:17 CONCLUSION: 1. No acute intracranial abnormalities. . EKG interpretations - EKG EKG shows: sinus rhythm (EKGs are sinus rhythm with nonspecific T wave changes.) Caprini VTE Risk Assessment Caprini VTE Risk Assessment: No/Low Risk (score <= 1) Caprini Risk Assessment Model: Point Value = 1 Point Value = 2 Point Value = 3 Point Value = 5 Age 41-60 Minor surgery BMI > 25 kg/m2 Swollen legs Varicose veins or History of unexplained or recurrent spontaneous Oral contraceptives or hormone replacement Sepsis (< 1 month) Serious lung disease, including pneumonia (< 1 month) Abnormal pulmonary function Acute myocardial infarction Congestive heart failure (< 1 month) History of inflammatory bowel disease Medical patient at bed rest Age 61-74 Arthroscopic surgery Major open surgery (> 45 min) Laparoscopic surgery (> 45 min) Malignancy Confined to bed (> 72 hours) Immobilizing plaster cast Central venous access Age >= 75 History of VTE Family history of VTE Factor V Leiden Prothrombin [id number] Lupus anticoagulant Anticardiolipin antibodies Elevated serum homocysteine Heparin-induced thrombocytopenia Other congenital or acquired thrombophilia Stroke (< 1 month) Elective arthroplasty Hip, pelvis, or leg fracture Acute spinal cord injury (< 1 month) Prophylaxis Regimen: Total Risk Factor Score Risk Level Prophylaxis Regimen 0-1 Low Early ambulation 2 Moderate Order ONE of the following: *Sequential Compression Device (SCD) *Heparin 5000 units SQ BID 3-4 Higher Order ONE of the following medications: *Heparin 5000 units SQ TID *Enoxaparin/Lovenox 40 mg SQ daily (WT < 150 kg, CrCl > 30 mL/min) *Enoxaparin/Lovenox 30 mg SQ daily (WT < 150 kg, CrCl > 10-29 mL/min) *Enoxaparin/Lovenox 30 mg SQ BID (WT < 150 kg, CrCl > 30 mL/min) AND/OR *Sequential Compression Device (SCD) 5 or more Highest Order ONE of the following medications: *Heparin 5000 units SQ TID (Preferred with Epidurals) *Enoxaparin/Lovenox 40 mg SQ daily (WT < 150 kg, CrCl > 30 mL/min) *Enoxaparin/Lovenox 30 mg SQ daily (WT < 150 kg, CrCl > 10-29 mL/min) *Enoxaparin/Lovenox 30 mg SQ BID (WT < 150 kg, CrCl > 30 mL/min) AND *Sequential Compression Device (SCD) Assessment and Plan - Assessment (1) Chest pain Code(s): R07.9 - Chest pain, unspecified Status: Acute (2) History of paroxysmal supraventricular tachycardia Code(s): Z86.79 - Personal history of other diseases of the circulatory system Status: Acute (3) Diabetes Code(s): E11.9 - Type 2 diabetes mellitus without complications Status: Acute (4) Hyperlipidemia Code(s): E78.5 - Hyperlipidemia, unspecified Status: Acute - Plan * Chest pain: Patient has had serial cardiac enzymes and EKGs for ruling out purposes. She will be seen by Dr. Estrada of cardiology and chest pain center. 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 Return to ED for interval issues. * Diabetes: Sliding scale insulin coverage while in chest pain center. She should follow diabetic diet. Resume medication at discharge. She should also discuss being on BERE inhibitor with her PCP for renal protection with history of diabetes. * Hyperlipidemia: Continue medication. * History of paroxysmal SVT: Follow-up with her home sales consultant. Continue medication. Patient will be on telemetry while in chest pain center. Patient is stable at this time. She is agreeable to this plan. H&P: Quality - VTE Deep Vein Thrombosis/Pulmonary Embolism Present on Admission: No
--- NOTE | 2018-03-09 11:16 | NM ---
EXAM DATE: 03/09/2018 11:10 AM EST AGE/SEX: 52 years / Female INDICATIONS:Angina. Atrial fibrillation Substernal chest pain. CLINICAL DATA: This is the patient's initial encounter. Patient reports that signs and symptoms have been present for 3 days and indicates a pain score of 5/10. MEDICAL/SURGICAL HISTORY: Carcinoma, cervical. Diabetes mellitus type II. Hysterectomy. Loop r ecorder placed. COMPARISON: No prior exams available for comparison. DOSE: 8.1 mCi Tc 99m Myoview at rest 25.9 mCi [id number] at stress 0.4 mg Lexiscan STRESS SYMPTOMS: None. EJECTION FRACTION: 67 % TECHNIQUE: The patient underwent pharmacologic stress with infusion of prescribed dose. Continuous ECG tracing was monitored during stress. Gated SPECT imaging was performed after stress and conventi onal SPECT imaging was performed at rest. The examination was performed on a SPECT/CT scanner, both attenuation and non-corrected datasets were reviewed. FINDINGS: Distribution: The maximum perfused segment at stress is in the anterolateral wall. Perfusion Study: The pattern of perfusion at stress is within normal limits. Gated Study: There are intact wall motion and wall thickening without hypokinetic or dyskinetic segm ents. The ejection fraction is calculated at 67%. RISK CATEGORY: Low (<1% Annual Mortality Rate) CONCLUSION: 1. No appreciable ischemia. Electronically signed by: Vania Moreno MD Board Certified Radiologist 03/09/2018 11:15 AM EST
[2018-03-09] MEDS ORDERED: Insulin NovoLIN Regular Correctional Sugar Inj SQ SCH (12:00)
[2018-03-09 12:08] VITALS: BP 115/70; PULSE 69; TEMP 97.6; O2SAT 92
--- NOTE | 2018-03-09 14:54 | ECG ---
Date Performed: 03/08/2018 Time Performed: 20:33:24 PTAGE: 52 years EKG: Sinus rhythm POSSIBLE LEFT ATRIAL ENLARGEMENT NONSPECIFIC T-WAVE ABNORMALITY BORDERLINE ECG PREVIOUS TRACING : 03/02/2016 09.05 Since previous tracing, no significant change noted DOCTOR: Ezequiel Estrada Interpretating Date/Time 03/09/2018 14:53:33
--- NOTE | 2018-03-09 14:56 | ECG ---
Date Performed: 03/08/2018 Time Performed: 16:52:30 PTAGE: 52 years EKG: Sinus rhythm POSSIBLE LEFT ATRIAL ENLARGEMENT NONSPECIFIC ST & T-WAVE ABNORMALITY BORDERLINE ECG INTERPRETATION B ASED ON A DEFAULT AGE OF 40 YEARS Since PREVIOUS TRACING , no significant change noted DOCTOR: Ezequiel Estrada Interpretating Date/Time 03/09/2018 14:54:38
--- NOTE | 2018-03-09 14:57 | ECG ---
Date Performed: 03/09/2018 Time Performed: 00:01:47 PTAGE: 52 years EKG: Sinus rhythm POSSIBLE LEFT ATRIAL ENLARGEMENT NONSPECIFIC T-WAVE ABNORMALITY BORDERLINE ECG PREVIOUS TRACING : 03/08/2018 20.33 Since previous tracing, no significant change noted DOCTOR: Ezequiel Estrada Interpretating Date/Time 03/09/2018 14:55:33
--- NOTE | 2018-03-10 10:55 | TR ---
Date Performed: 03/09/2018 Time Performed: 10:07:06 DOCTOR: Ezequiel Estrada DRUG LIST: CLINICAL HISTORY: REASON FOR TEST: REASON FOR ENDING: OBSERVATION: CONCLUSION: COMMENTS: Lexiscan stress test was performed under standard four minute protocol. Radionuclide was injected one minute prior to ending the test. No electrocardiographic abormalities were present t o suggest ischemia. Nuclear imaging and interpretation are pending.
== END 2018-03-09 12:43 | disposition home or self-care (01) ==
LOC: NEDA 16:20 → NEPC 16:20 → NEPFCDU 03-09 00:21
PROVIDERS: ADMIT Internal Medicine Cardiovascular Disease; ATTEND Internal Medicine Cardiovascular Disease
CPT/HCPCS: 70450; 71010; 71045; 78452; 80053; 81001; 82550; 84484; 85025; 93005; 93017; 99285; A9502; G0378; J2785; Q9969